=== PATIENT | male | born 1960 | race Caucasian/White ===

== ENCOUNTER → 2018-07-02 | Outpatient (CLI) | payer OTHER ==
[2018-07-02 11:28] LABS: CHOL/HDL RATIO 3.1; Cholesterol 142 mg/dL (50-200); HDL Cholesterol 46 mg/dL (>39); LDL/HDL RATIO 1.8; Low Density Lipoprotein Chol 82 mg/dL (0-110); Triglycerides 70 mg/dL (30-160); Very Low Density Lipoprot Chol 14 mg/dL (6-32)
== END | disposition home or self-care (01) ==
LOC: LAB SHORT 09:45 → LAB UCHC 09:45
PROVIDERS: Family Medicine
DX: E78.5 Hyperlipidemia, unspecified (principal)
CPT/HCPCS: 36415; 80061

== ENCOUNTER 2022-11-20 06:46 | Day surgery (SDC) | payer OTHER ==
[~2022-11-20] VITALS: Ht 175.3 cm; Wt 112.9 kg
[~2022-11-20 06:46] MED LIST: AMLO10; ATOR20; CATAPRES0.1 MG PO; Diovan160 MG PO; HYDCHL25 PO; LOSARTAN POTAS100 M1 PO; Lopressor 50 mg50 MG; NAPR550
--- NOTE | 2022-11-20 07:16 | NUR ---
11/20/22 0716 Ирина Roach 0704, TEMITOPE 0748
[2022-11-20 08:32] VITALS: BP 137/66
--- NOTE | 2022-11-20 08:32 | NUR ---
11/20/22 0832 Nicky Prakash IV REMOVED, WITHIN NORMAL LIMITS. PT TOLERATED WELL.
== END 2022-11-20 08:35 | disposition home or self-care (01) ==
LOC: ORSCSDS 06:46
PROVIDERS: Ophthalmology
PROC: 08RK3JZ Replacement of Left Lens with Synthetic Substitute, Percutaneous Approach (ICD-10-PCS; principal; 2022-11-20 08:00)
DX: H25.12 Age-related nuclear cataract, left eye (principal); I10 Essential (primary) hypertension; G47.33 Obstructive sleep apnea (adult) (pediatric); E66.9 Obesity, unspecified; Z68.36 Body mass index [BMI] 36.0-36.9, adult; F17.210 Nicotine dependence, cigarettes, uncomplicated; E78.5 Hyperlipidemia, unspecified; Z79.899 Other long term (current) drug therapy
CPT/HCPCS: J2001; J2250; J3010; J3301; J7040; V2632